=== PATIENT | female | born 1975 | race Caucasian/White ===

== ENCOUNTER 2019-01-19 03:22 | Emergency (ER) | payer SELFPAY ==
[~2019-01-19] VITALS: Ht 157.5 cm; Wt 85.0 kg
[2019-01-19 03:30] VITALS: BP 149/73
--- NOTE | 2019-01-19 03:30 | NUR ---
PT TAKEN TO BED 4
[2019-01-19] MEDS ORDERED: ACETAMINOPHEN EXTRA STRENGTH 500 MG TAB PO ONE (03:45)
--- NOTE | 2019-01-19 03:45 | NUR ---
BIB FRIEND WITH C/O CHEST PAIN 07/24 RADIATING TO LEFT SHOULDER AND NECK STARTED AT >6 HOURS AGO. +NAUSEA,- VOMITING, +DIAHRREA, 10X SINCE SUNDAY. STATES BURNING EPIGASTRIC PAIN SINCE SUNDAY WITH FEVER. DENIES COUGH, SOB. PATIENT POSITIONED FOR COMFORT, HOOKED UP TO MONITOR, BED IN LOW LOCKED POSITION. ERMD MADE AWARE.
[2019-01-19] MEDS ORDERED: ACETAMINOPHEN EXTRA STRENGTH 500 MG TAB ONE (03:53)
--- NOTE | 2019-01-19 03:54 | NUR ---
Dr. Chavis evaluting patient at bedside.
[2019-01-19] MEDS ORDERED: PANTOPRAZOLE 40 MG INJ VIAL IVP ONE (04:00)
[2019-01-19] MEDS ORDERED: NACL 0.9% 1,000 ML IV ONE (04:00)
[2019-01-19] MEDS ORDERED: KETOROLAC 30 MG/ML VIAL IVP ONE (04:00)
[2019-01-19] MEDS ORDERED: ONDANSETRON 4 MG/2 ML VIAL IVP ONE (04:00)
[2019-01-19 05:16] LABS: ANION GAP 12.2 (8-16); CARBON DIOXIDE 23.9 mmol/L (21-32); CREATININE 0.8 mg/dL (0.6-1.3); POTASSIUM 3.1 mmol/L (3.5-5.1)
[2019-01-19 05:17] LABS: BASOPHILS % (AUTO) 0.3 % (0.0-2.0); EOSINOPHILS % (AUTO) 0.7 % (0.0-4.0); HEMATOCRIT 22.7 % (36-48); LYMPHOCYTES # (AUTO) 0.7 K/uL (2.5-16.5); LYMPHOCYTES % (AUTO) 9.9 % (20.5-51.1); MEAN CORPUSCULAR HEMOGLOBIN 22 pg (27-31); MEAN CORPUSCULAR HGB CONC 32 g/dL (33-37); MEAN CORPUSCULAR VOLUME 67.7 fL (80-94); MONOCYTES # (AUTO) 0.7 K/uL (0.8-1.0); MONOCYTES % (AUTO) 9.9 % (1.7-9.3); NEUTROPHILS # (AUTO) 5.3 K/uL (1.8-7.7); NEUTROPHILS % (AUTO) 79.2 % (42.2-75.2); PLATELET COUNT (AUTO) 234 K/uL (140-450); RED BLOOD CELL COUNT(AUTO) 3.35 MIL/uL (4.20-5.40); WHITE BLOOD COUNT (AUTO) 6.6 K/uL (4.8-10.8)
[2019-01-19] MEDS ORDERED: POTASSIUM CHLORIDE 20% 40 MEQ/15 ML UDC PO ONE (05:20)
[2019-01-19 05:22] LABS: HEMOGLOBIN 7.3 g/dL (12.0-16.0)
[2019-01-19 05:23] LABS: ALBUMIN 2.9 g/dL (3.4-5.0); TOTAL BILIRUBIN 0.6 mg/dL (0.0-1.0)
[2019-01-19 05:50] VITALS: BP 133/71
--- NOTE | 2019-01-19 05:50 | NUR ---
Patient discharged with v/s stable. Written and verbal after care instructions given and explained. Patient verbalized understanding. Ambulatory with steady gait. All questions addressed prior to discharge. Advised to follow up with PMD.
== END 2019-01-19 05:50 | disposition home or self-care (01) ==
LOC: MED 03:22
DX: R19.7 Diarrhea, unspecified (principal); D64.9 Anemia, unspecified; R11.2 Nausea with vomiting, unspecified
CPT/HCPCS: 36415; 74022; 80053; 81002; 81025; 85025; 93005; 96361; 96374; 96375; 99284; C9113; J1885; J2405; J7030

== ENCOUNTER 2019-11-04 00:11 | Emergency (ER) | payer SELFPAY ==
[~2019-11-04] VITALS: Ht 157.5 cm; Wt 81.6 kg
[2019-11-04 00:35] VITALS: BP 135/88
--- NOTE | 2019-11-04 00:35 | NUR ---
44 Y/O FEMALE C/O BODYACHES, SORETHROAT, CHILLS STARTED THIS AFTERNOON. A/OX4 FOLLOWS COMMANDS; BREATHING UNLABORED AND SYMMETRICAL. CLEAR DIMINISHED BREATH SOUNDS. 4/10 PAIN GENERALIZED. ERMD MADE AWARE OF STATUS. SIDE [id number]. WILL CONTINUE TO MONITOR. PMH:DENIES RX:DENIES NKDA
--- NOTE | 2019-11-04 00:35 | NUR ---
TO BED # 12 AMBULATORY
[2019-11-04 00:45] VITALS: BP 135/88
--- NOTE | 2019-11-04 00:45 | NUR ---
Patient discharged with v/s stable. Written and verbal after care instructions given and explained. Patient alert, oriented and verbalized understanding of instructions. Ambulatory with steady gait. All questions addressed prior to discharge. ID band removed. Patient advised to follow up with PMD. Rx of AUGMENTIN WAS given. Patient educated on indication of medication including possible reaction and side effects. Opportunity to ask questions provided and answered. DR. PETERSON D/C PT
== END 2019-11-04 00:45 | disposition home or self-care (01) ==
LOC: MED 00:11
DX: J20.9 Acute bronchitis, unspecified (principal)
CPT/HCPCS: 99283

== ENCOUNTER 2020-04-07 20:30 | Emergency (ER) | payer SELFPAY ==
[~2020-04-07] VITALS: Ht 160 cm; Wt 83.5 kg
[2020-04-07 20:38] VITALS: BP 130/83
[2020-04-07 21:40] VITALS: BP 126/80
== END 2020-04-07 21:40 | disposition home or self-care (01) ==
LOC: MED 20:30
DX: R07.89 Other chest pain (principal)
CPT/HCPCS: 93005; 99283

== ENCOUNTER 2020-07-07 15:27 | Emergency (ER) | payer SELFPAY ==
[~2020-07-07] VITALS: Ht 157.5 cm; Wt 84.4 kg
[2020-07-07 15:37] VITALS: BP 143/89
--- NOTE | 2020-07-07 16:12 | NUR ---
44 Y/O FEMALE C/O DIZZINESS & CHEST TIGHTNESS AND TREMORING X 1 WEEK THAT HAS INCREASED TODAY. HR EVEN & REGULAR 81 BPM. DENIES SOB. VSS. DENIES ANY PAIN AT THIS TIME. RESP EVEN AND UNLABORED. LUNG SOUNDS CLEAR TO BILAT LOBES. HX: NONE
[2020-07-07 16:25] VITALS: BP 143/89
--- NOTE | 2020-07-07 16:25 | NUR ---
Patient discharged with v/s stable. Written and verbal after care instructions given and explained. Patient alert, oriented and verbalized understanding of instructions. Ambulatory with steady gait. All questions addressed prior to discharge. ID band removed. Patient advised to follow up with PMD. Rx of VISTARIL given. Patient educated on indication of medication including possible reaction and side effects. Opportunity to ask questions provided and answered.
== END 2020-07-07 16:25 | disposition home or self-care (01) ==
LOC: MED 15:27
DX: R07.9 Chest pain, unspecified (principal); F41.9 Anxiety disorder, unspecified
CPT/HCPCS: 81002; 81025; 93005; 99283

== ENCOUNTER 2020-10-19 01:05 | Emergency (ER) | payer SELFPAY ==
[~2020-10-19] VITALS: Ht 157.5 cm; Wt 74.8 kg
[2020-10-19 01:10] VITALS: BP 132/80
--- NOTE | 2020-10-19 01:13 | NUR ---
TO LOBBY A/W BED AMBULATORY
--- NOTE | 2020-10-19 02:30 | NUR ---
SEEN AND EXAMINED BY CARSON WITH ORDERS AND CARRIED OUT
[2020-10-19] MEDS ORDERED: KETOROLAC 60 MG/2 ML VIAL IM ONE (02:50)
--- NOTE | 2020-10-19 02:50 | NUR ---
MEDICATED PER ERMDS ORDER, TOLERATED WELL.
[2020-10-19 03:25] VITALS: BP 125/78
--- NOTE | 2020-10-19 03:25 | NUR ---
Patient discharged with v/s stable. Written and verbal after care instructions given and explained. Patient alert, oriented and verbalized understanding of instructions. Ambulatory with steady gait. All questions addressed prior to discharge. ID band removed. Patient advised to follow up with PMD. Rx of CIPRO, MOTRIN given. Patient educated on indication of medication including possible reaction and side effects. Opportunity to ask questions provided and answered.
== END 2020-10-19 03:25 | disposition home or self-care (01) ==
LOC: MED 01:05
DX: N39.0 Urinary tract infection, site not specified (principal); R30.0 Dysuria; Z98.890 Other specified postprocedural states
CPT/HCPCS: 81002; 81025; 99283; J1885

== ENCOUNTER 2021-06-08 01:14 | Emergency (ER) | payer SELFPAY ==
[~2021-06-08] VITALS: Ht 157.5 cm; Wt 91.2 kg
[2021-06-08 01:18] VITALS: BP 145/91
[2021-06-08 01:38] LABS: APPEARANCE,URINE CLOUDY (CLEAR); BILIRUBIN,URINE NEGATIVE (NEGATIVE); BLOOD, URINE 1+ (NEGATIVE); COLOR,URINE YELLOW (YELLOW); LEUKOCYTE ESTERASE ,URINE TRACE (NEGATIVE); NITRITE, URINE NEGATIVE (NEGATIVE); UGLUCOSE NEGATIVE (NEGATIVE)
[2021-06-08 01:51] LABS: RBC,URINE 0-5 /HPF (0-5); WBC,URINE TOO MANY TO COUNT /HPF (0-5)
[2021-06-08] MEDS ORDERED: CEPH-588 PO (02:00)
[2021-06-08] MEDS ORDERED: PYR100 PO (02:01)
== END 2021-06-08 02:05 | disposition home or self-care (01) ==
LOC: MED 01:14
DX: N12 Tubulo-interstitial nephritis, not specified as acute or chronic (principal); Z79.899 Other long term (current) drug therapy; Z79.1 Long term (current) use of non-steroidal anti-inflammatories (NSAID)
CPT/HCPCS: 81001; 87086; 99283

== ENCOUNTER 2021-06-22 02:39 | Emergency (ER) | payer SELFPAY ==
[~2021-06-22] VITALS: Ht 157.5 cm; Wt 86.2 kg
[~2021-06-22 02:39] MED LIST: CEPH-588 PO; PYR100 PO
[2021-06-22 03:07] VITALS: BP 140/76
--- NOTE | 2021-06-22 03:26 | NUR ---
ERMD ASSESSING PT IN [facility].
--- NOTE | 2021-06-22 03:28 | NUR ---
PT AMBULATED TO BED 09.
--- NOTE | 2021-06-22 03:30 | NUR ---
PT BIB SELF FOR C/C L FLANK PAIN X 2 DAYS. PT REPORTS SHE WAS DX A WEEK AGO WITH A KIDNEY INFECTION AND WAS PRESCIBED ANTIBIOTICS. REPORTS PAIN 7/10 PAIN. DENIES N/V/D, FEVER, CHILLS, CP OR SOB. DENIES URINARY BURNING, FREQUENCY OR RETENTION. MED HX: KIDNEY INFECTION. ALLERGIES: NKA
[2021-06-22 03:44] LABS: APPEARANCE,URINE CLOUDY (CLEAR); BILIRUBIN,URINE NEGATIVE (NEGATIVE); BLOOD, URINE 3+ (NEGATIVE); COLOR,URINE RED (YELLOW); LEUKOCYTE ESTERASE ,URINE NEGATIVE (NEGATIVE); NITRITE, URINE NEGATIVE (NEGATIVE); PH,URINE 6.5 (5.0-9.0); UGLUCOSE NEGATIVE (NEGATIVE)
[2021-06-22] MEDS ORDERED: KETOROLAC 60 MG/2 ML VIAL IM ONE (03:45)
[2021-06-22 03:54] LABS: RBC,URINE TOO NUMEROUS TO COUN /HPF (0-5); WBC,URINE 0-5 /HPF (0-5)
--- NOTE | 2021-06-22 04:15 | NUR ---
XRAY AT BEDSIDE.
[2021-06-22] MEDS ORDERED: NAPR-54 PO (04:41)
[2021-06-22 04:48] VITALS: BP 140/76
== END 2021-06-22 04:48 | disposition home or self-care (01) ==
LOC: MED 02:39
DX: S39.011A Strain of muscle, fascia and tendon of abdomen, initial encounter (principal); Z79.899 Other long term (current) drug therapy; Z90.49 Acquired absence of other specified parts of digestive tract; X58.XXXA Exposure to other specified factors, initial encounter; Y93.89 Activity, other specified; Y92.89 Other specified places as the place of occurrence of the external cause; Y99.8 Other external cause status
CPT/HCPCS: 71045; 81001; 81025; 96372; 99283; J1885; Q0092

== ENCOUNTER 2023-09-10 23:51 | Inpatient (IN) | payer MEDICAID ==
[~2023-09-10] VITALS: Ht 157.5 cm; Wt 105.2 kg
[~2023-09-10 23:51] MED LIST changes: +NAPR-54 PO
[2023-09-11 00:17] VITALS: BP 148/86; PULSE 100; RESP 18; TEMP 97.3; O2SAT 100
[2023-09-11 00:46] LABS: BASOPHILS % (AUTO) 0.6 % (0.0-2.0); EOSINOPHILS # (AUTO) 0.2 K/uL (0-0.4); LYMPHOCYTES # (AUTO) 2.2 K/uL (2.5-16.5); LYMPHOCYTES % (AUTO) 27.8 % (20.5-51.1); MEAN CORPUSCULAR HEMOGLOBIN 20 pg (27-31); MEAN CORPUSCULAR HGB CONC 31 g/dL (33-37); MEAN CORPUSCULAR VOLUME 63.6 fL (80-94); MONOCYTES # (AUTO) 0.6 K/uL (0.8-1.0); MONOCYTES % (AUTO) 7.4 % (1.7-9.3); NEUTROPHILS # (AUTO) 4.9 K/uL (1.8-7.7); NEUTROPHILS % (AUTO) 62.2 % (42.2-75.2); PLATELET COUNT (AUTO) 264 K/uL (140-450); RED BLOOD CELL COUNT(AUTO) 3.46 MIL/uL (4.20-5.40); RED CELL DISTRIBUTION WIDTH 18.6 % (11.6-13.7); WHITE BLOOD COUNT (AUTO) 7.8 K/uL (4.8-10.8)
[2023-09-11 00:48] LABS: APPEARANCE,URINE CLEAR (CLEAR); BILIRUBIN,URINE NEGATIVE (NEGATIVE); BLOOD, URINE NEGATIVE (NEGATIVE); COLOR,URINE YELLOW (YELLOW); LEUKOCYTE ESTERASE ,URINE NEGATIVE (NEGATIVE); NITRITE, URINE NEGATIVE (NEGATIVE); PROTEIN,URINE NEGATIVE (NEGATIVE); UGLUCOSE NEGATIVE (NEGATIVE); UROBILINOGEN,URINE 0.2 EU/dL (0.2 - 1)
[2023-09-11 00:50] LABS: HEMOGLOBIN 6.8 g/dL (12.0-16.0)
[2023-09-11 01:04] LABS: ALBUMIN 3.3 g/dL (3.4-5.0); ANION GAP 13.8 (8-16); CALCIUM 8.1 mg/dL (8.5-10.1); CREATININE 0.7 mg/dL (0.6-1.3); POTASSIUM 3.8 mmol/L (3.5-5.1); TOTAL BILIRUBIN 0.3 mg/dL (0.0-1.0); TOTAL PROTEIN, SERUM 7.5 g/dL (6.4-8.2)
[2023-09-11] MEDS ORDERED: DOCUSATE SODIUM 100 MG GELCAP PO PRN (02:30)
[2023-09-11] MEDS ORDERED: HYDROcodone/APAP 7.5/325 MG 1 TAB PO PRN (02:30)
[2023-09-11] MEDS ORDERED: guaiFENesin DM 200/20 MG-10 ML 10 ML UDC PO PRN (02:30)
[2023-09-11] MEDS ORDERED: ZOLPIDEM 5 MG TAB PO PRN (02:30)
[2023-09-11] MEDS ORDERED: ONDANSETRON 4 MG/2 ML VIAL IM/IVP PRN (02:30)
[2023-09-11] MEDS ORDERED: POTASSIUM CHLORIDE 10 MEQ TABER PO PRN (02:30)
[2023-09-11 02:50] LABS: INR 0.95 (0.8-1.2); PARTIAL THROMBOPLASTIN TIME 22.7 secs (22-35.6)
[2023-09-11] MEDS: NACL 0.9% 1,000 ML IV SCH ×2 (07:30→23:12)
[2023-09-11] MEDS: PANTOPRAZOLE 40 MG TABEC PO SCH (08:18)
[2023-09-11 23:00] VITALS: PULSE 73; RESP 18; O2SAT 100
[2023-09-11 23:50] LABS: HEMATOCRIT 25.5 % (36-48); HEMOGLOBIN 7.9 g/dL (12.0-16.0)
[2023-09-12 04:00] VITALS: BP 137/69; PULSE 69; PULSE 75; RESP 18; TEMP 97.6; O2SAT 99
[2023-09-12] MEDS: ACETAMINOPHEN 325 MG TAB PO PRN ×2 (05:48→15:01)
[2023-09-12 07:06] LABS: BASOPHILS % (AUTO) 0.7 % (0.0-2.0); EOSINOPHILS # (AUTO) 0.1 K/uL (0-0.4); EOSINOPHILS % (AUTO) 2.3 % (0.0-4.0); HEMATOCRIT 25.2 % (36-48); HEMOGLOBIN 7.8 g/dL (12.0-16.0); LYMPHOCYTES % (AUTO) 30.6 % (20.5-51.1); MEAN CORPUSCULAR HEMOGLOBIN 20 pg (27-31); MEAN CORPUSCULAR HGB CONC 31 g/dL (33-37); MEAN CORPUSCULAR VOLUME 66.4 fL (80-94); MONOCYTES # (AUTO) 0.5 K/uL (0.8-1.0); MONOCYTES % (AUTO) 7.6 % (1.7-9.3); NEUTROPHILS # (AUTO) 3.8 K/uL (1.8-7.7); NEUTROPHILS % (AUTO) 58.8 % (42.2-75.2); PLATELET COUNT (AUTO) 231 K/uL (140-450); RED CELL DISTRIBUTION WIDTH 22.9 % (11.6-13.7); WHITE BLOOD COUNT (AUTO) 6.4 K/uL (4.8-10.8)
[2023-09-12 07:19] LABS: ALBUMIN 3.3 g/dL (3.4-5.0); ANION GAP 11.9 (8-16); CALCIUM 8.3 mg/dL (8.5-10.1); CARBON DIOXIDE 26.9 mmol/L (21-32); CREATININE 0.6 mg/dL (0.6-1.3); POTASSIUM 3.8 mmol/L (3.5-5.1); TOTAL BILIRUBIN 0.7 mg/dL (0.0-1.0); TOTAL PROTEIN, SERUM 7.2 g/dL (6.4-8.2)
[2023-09-12 08:00] VITALS: BP 125/69; PULSE 68; PULSE 72; RESP 20; TEMP 97.1; O2SAT 99
[2023-09-12] MEDS ORDERED: MEDR10TA PO (08:02)
[2023-09-12 08:56] VITALS: PULSE 68; RESP 20; O2SAT 99
[2023-09-12] MEDS: PANTOPRAZOLE 40 MG TABEC PO SCH (10:30)
[2023-09-12 12:00] VITALS: BP 132/75; PULSE 68; RESP 19; TEMP 95.8; O2SAT 99
[2023-09-12 12:27] LABS: AMPHETAMINE, URINE NEGATIVE ng/ml (NEG <=1000); BARBITURATE, URINE NEGATIVE ng/ml (NEG <=200); BENZODIAZEPINE, URINE NEGATIVE ng/mL (NEG <=200); CANNABINOID, URINE NEGATIVE ng/mL (NEG <=50); COCAINE, URINE NEGATIVE ng/mL (NEG <=300); OPIATE, URINE NEGATIVE ng/mL (NEG <=2000); PHENCYCLIDINE SCREEN,URINE NEGATIVE ng/mL (NEG <=25)
[2023-09-12] MEDS: NACL 0.9% 1,000 ML IV SCH (13:04)
[2023-09-12 15:19] VITALS: BP 127/85; PULSE 65; RESP 20; TEMP 97.1
== END 2023-09-12 15:55 | disposition home or self-care (01) | DRG 532 ==
LOC: MED 23:51 → MTU 09-11 02:29
PROVIDERS: ADMIT Student in an Organized Health Care Education/Training Program; ATTEND Student in an Organized Health Care Education/Training Program
PROC: 30233N1 Transfusion of Nonautologous Red Blood Cells into Peripheral Vein, Percutaneous Approach (ICD-10-PCS; principal; 2023-09-11)
DX: N92.0 Excessive and frequent menstruation with regular cycle (principal); D62 Acute posthemorrhagic anemia; K76.0 Fatty (change of) liver, not elsewhere classified; E66.01 Morbid (severe) obesity due to excess calories; Z90.49 Acquired absence of other specified parts of digestive tract; Z98.891 History of uterine scar from previous surgery; Z68.41 Body mass index [BMI] 40.0-44.9, adult
CPT/HCPCS: 36415; 36430; 71045; 80053; 80305; 81003; 83690; 85018; 85025; 85610; 85730; 86886; 86900; 86901; 86920; 87081; 99285; P9016; Q0092; Q9967

== ENCOUNTER 2023-11-07 19:49 | Emergency (ER) | payer SELFPAY ==
[~2023-11-07] VITALS: Ht 157.5 cm; Wt 99.8 kg
[~2023-11-07 19:49] MED LIST changes: -CEPH-588 PO; +MEDR10TA PO; -NAPR-54 PO; -PYR100 PO
[2023-11-07 20:08] VITALS: BP 152/80; PULSE 80; RESP 17; TEMP 97.7; O2SAT 100
[2023-11-07] MEDS ORDERED: KETOROLAC 30 MG/ML VIAL IM ONE (22:45)
[2023-11-07 23:28] LABS: BASOPHILS % (AUTO) 0.6 % (0.0-2.0); EOSINOPHILS # (AUTO) 0.1 K/uL (0-0.4); EOSINOPHILS % (AUTO) 1.5 % (0.0-4.0); HEMATOCRIT 28.8 % (36-48); HEMOGLOBIN 9.2 g/dL (12.0-16.0); LYMPHOCYTES # (AUTO) 2.1 K/uL (2.5-16.5); LYMPHOCYTES % (AUTO) 28.9 % (20.5-51.1); MEAN CORPUSCULAR HEMOGLOBIN 22 pg (27-31); MEAN CORPUSCULAR HGB CONC 32 g/dL (33-37); MEAN CORPUSCULAR VOLUME 69.4 fL (80-94); MONOCYTES # (AUTO) 0.5 K/uL (0.8-1.0); MONOCYTES % (AUTO) 6.9 % (1.7-9.3); NEUTROPHILS # (AUTO) 4.4 K/uL (1.8-7.7); NEUTROPHILS % (AUTO) 62.1 % (42.2-75.2); PLATELET COUNT (AUTO) 368 K/uL (140-450); RED BLOOD CELL COUNT(AUTO) 4.15 MIL/uL (4.20-5.40); WHITE BLOOD COUNT (AUTO) 7.1 K/uL (4.8-10.8)
[2023-11-07 23:59] LABS: ANION GAP 16.2 (8-16); CALCIUM 9.2 mg/dL (8.5-10.1); CARBON DIOXIDE 24.2 mmol/L (21-32); CREATININE 0.6 mg/dL (0.6-1.3); POTASSIUM 3.4 mmol/L (3.5-5.1)
[2023-11-08 00:04] LABS: FLU A ANTIGEN negative (NEGATIVE); FLU B ANTIGEN NEGATIVE (NEGATIVE)
[2023-11-08 00:29] LABS: APPEARANCE,URINE CLEAR (CLEAR); BILIRUBIN,URINE NEGATIVE (NEGATIVE); BLOOD, URINE 3+ (NEGATIVE); COLOR,URINE YELLOW (YELLOW); LEUKOCYTE ESTERASE ,URINE NEGATIVE (NEGATIVE); NITRITE, URINE NEGATIVE (NEGATIVE); PROTEIN,URINE 1+ (NEGATIVE); UGLUCOSE NEGATIVE (NEGATIVE); UROBILINOGEN,URINE 0.2 EU/dL (0.2 - 1)
[2023-11-08 01:45] LABS: BACTERIA,URINE 10-30 (MOD) /HPF (None Seen); MUCUS,URINE 1+ /LPF (None Seen); RBC,URINE TOO NUMEROUS TO COUN /HPF (0-5); SQUAMOUS EPITHELIAL CELL,UR 0-3 (FEW) /LPF (0-3 (FEW)); WBC,URINE 0-5 /HPF (0-5)
[2023-11-08] MEDS ORDERED: IBUP-2213 PO (01:51)
[2023-11-08] MEDS ORDERED: HYDR25CA1 PO (01:51)
[2023-11-08 02:08] VITALS: BP 130/73; PULSE 76; RESP 18; TEMP 97.7; O2SAT 100
== END 2023-11-08 02:07 | disposition home or self-care (01) ==
LOC: MED 19:49
DX: B34.9 Viral infection, unspecified (principal); Z20.822 Contact with and (suspected) exposure to COVID-19; D50.9 Iron deficiency anemia, unspecified; G47.00 Insomnia, unspecified; Z79.899 Other long term (current) drug therapy
CPT/HCPCS: 36415; 80048; 81001; 81025; 84484; 85025; 87086; 93005; 99284